=== PATIENT | female | born 1995 | race Caucasian/White ===

== ENCOUNTER → 2021-04-16 15:09 | Outpatient (CLI) | payer OTHER, SELFPAY ==
--- NOTE | ~2021-04-16 | XR_ITS ---
XR abdomen obstructive series DATE: 04/16/2021 15:31 INDICATION: Abdominal pain, constipation TECHNIQUE: Supine and upright AP views COMPARISON: None FINDINGS: There is a prominent amount of fecal material in the ascending and transverse and descendin g colon. No bowel obstruction or intraperitoneal free air is detected. No visceromegaly is noted. The psoas shadows are intact. Occasional calcified pelvic phleboliths; no significant abnormal calcification is noted. There is mild to moderate rotatory levoscoliosis of the lumbar spine and dextroscoliosis of the thora cic spine. The lung bases are clear. No pleural effusion. Normal heart size. IMPRESSION: Prominent amount of fecal material in the colon consistent with clinical complaint of con stipation; no bowel obstruction or free air Reviewed, dictated and finalized at [facility]. Reviewed, dictated and finalized at [facility] [employer] IMPRESSION: Prominent amount of fecal material in the colon consistent with cli nical complaint of constipation; no bowel obstruction or free air
== END ==
PROVIDERS: Visit Provider Family Medicine
DX: K59.00 Constipation, unspecified (principal); R10.84 Generalized abdominal pain
CPT/HCPCS: 74019